=== PATIENT | female | born 1955 ===

== ENCOUNTER 2016-09-12 13:31 | Observation (INO) | payer MEDICARE ==
--- NOTE | 2016-09-12 15:07 | ED PDOC ---
HPI: Abdomen Chief Complaint (Provider): RLQ pain History Per: Patient History/Exam Limitations: no limitations Onset/Duration Of Symptoms: Hrs Outside of [place] travel?: No Current Symptoms Are (Timing): Still Present Pain Scale Rating Of: 10 Location Of Pain/Discomfort: RLQ Quality Of Discomfort: Sharp Associated Symptoms: Chills, Nausea. denies: Fever, Vomiting, Diarrhea Exacerbating Factors: Movement Abnormal Vaginal Bleeding: No Last Menstral Period: >15 yrs ago <Moisés Ashby - Last Filed: 09/12/16 18:20> <Nick Acevedo - Last Filed: 09/12/16 18:52> Time Seen by Provider: 09/12/16 15:05 Chief Complaint (Nursing): Abdominal Pain Additional Complaint(s): 60 yo F w PMHx of HTN, DM2, Nephrolithiasis, and mild intermittent asthma presents to ER w c/o RLQ pain since waking up at 10a this morning. Pain is sharp , 10/10 at worst, radiates around flank and towards lower back. She took one hydrocodone 325mg at noon today, which has helped somewhat while at rest, however her pain still worsens when she extends her leg. She states +chills, + nausea, and +hematuria but denies fevers, vomiting, diaphoresis, diarrhea, constipation, dysuria, vaginal discharge, or other myalgias. PMHx: HTN, DM2, Anxiety, Nephrolithiasis PSHx: Cholecystectomy, Total Hysterectomy, Gynecological tumor removal (June) NKDA (Moisés Ashby) Supervising Attending Note <Moisés Ashby - Last Filed: 09/12/16 18:20> - Supervising Attending Note The Documented history was done by the: Physician Beef Trimmer The documented physical exam was done by the: Physician Beef Trimmer The documented procedures were done by the: Physician Beef Trimmer <Nick Acevedo - Last Filed: 09/12/16 18:52> - Notes: Notes:: RLQ and R flank pain. (Nick Acevedo) Past Medical History Reviewed: Historical Data, Nursing Documentation, Vital Signs - Medical History PMH: Anxiety, Arthritis, Diabetes, Gall Bladder Disease, HTN, Hypercholesterolemia, Kidney Stones Denies: Chronic Kidney Disease - Surgical History Surgical History: Cholecystectomy, Endoscopy - Family History Family History: States: No Known Family Hx <Moisés Ashby T - Last Filed: 09/12/16 18:20> <Nick Acevedo - Last Filed: 09/12/16 18:52> Vital Signs: Last Vital Signs Temp 98.2 F 09/12/16 13:38 Pulse 54 L 09/12/16 13:38 Resp 16 09/12/16 13:38 BP 145/81 09/12/16 13:38 Pulse Ox 100 09/12/16 18:23 - Home Medications Home Medications: Ambulatory Orders Medication Instructions Recorded Alprazolam [Xanax] 0.5 mg PO DAILY PRN 09/12/16 Hydrocodone/Acetaminophen 1 tab PO Q4H PRN 09/12/16 [Hydrocodon-Acetaminophen 5-325] Metoprolol Succinate [Toprol XL] 50 mg PO DAILY 09/12/16 Multivitamin [One-A-Day Essential] 1 tab PO DAILY 09/12/16 traMADol [Ultram] 50 mg PO TID PRN 09/12/16 - Allergies Allergies/Adverse Reactions: Allergies Allergy/AdvReac Type Severity Reaction Status Date / Time No Known Allergies Allergy Verified 06/21/15 01:12 Review of Systems ROS Statement: Except As Marked, All Systems Reviewed And Found Negative (see HPI) <Moisés Ashby T - Last Filed: 09/12/16 18:20> Physical Exam - Reviewed Nursing Documentation Reviewed: Yes Vital Signs Reviewed: Yes - Physical Exam Appears: Positive for: Non-toxic, Uncomfortable Head Exam: Positive for: ATRAUMATIC, NORMOCEPHALIC Skin: Positive for: Normal Color, Warm, Dry. Negative for: Jaundice Eye Exam: Positive for: Normal appearance, EOMI Neck: Positive for: Normal, Painless ROM Cardiovascular/Chest: Positive for: Regular Rate, Rhythm. Negative for: Edema Respiratory: Positive for: Normal Breath Sounds. Negative for: Crackles, Wheezing Gastrointestinal/Abdominal: Positive for: Soft, Tenderness (RLQ). Negative for : Distended Back: Positive for: R CVA Tenderness. Negative for: L CVA Tenderness Extremity: Negative for: Pedal Edema, Calf Tenderness Neurologic/Psych: Positive for: Alert, Oriented <Moisés Ashby - Last Filed: 09/12/16 18:20> - Physical Exam Cardiovascular/Chest: Positive for: Regular Rate, Rhythm Respiratory: Positive for: Normal Breath Sounds Gastrointestinal/Abdominal: Positive for: Tenderness <Nick Acevedo - Last Filed: 09/12/16 18:52> - Laboratory Results Result Diagrams: 09/12/16 15:45 09/12/16 15:45 - ECG O2 Sat by Pulse Oximetry: 100 - Progress Condition: Re-examined, Improved <Moisés Ashby - Last Filed: 09/12/16 18:20> - Laboratory Results Result Diagrams: 09/12/16 15:45 09/12/16 15:45 - CT Scan/US ct Other Rad Studies (CT/US): Read By Radiologist Other Rad Interpretation: urololithiasis <Nick Acevedo - Last Filed: 09/12/16 18:52> - Progress ED Course And Treament: 60 yo F w PMHx of HTN, DM2, Nephrolithiasis, and mild intermittent asthma presents to ER w c/o RLQ pain since waking up at 10a this morning -CBC -CMP -Udip -CT A/P -NS 1L -Toradol 15mg IVP x1 -Zofran 4mg IVP x1 Update 1600: -Nausea resolved -Pain significantly improved Update 1650: -No WBC, LFTs wnl, GFR wnl -Udip: Large blood, -leuk esteraste, -nitrate -Nausea/Pain still controlled Update 1730: -CT A/P w/o contrast: Moderate R obstructive uropathy with moderate hydronephrosis resulting from 4x5mm stone in R distal ureteral proximal to UV junction. Small nonobstructing stones in both kidneys. Mild hepatomegaly and hepatic steatosis. Update 1800: -Spoke w patient's urologist, Dr Salazar. He prefers to be admitted overnight for pain control, placed NPO after midnight, and will be evaluated/treated tomorrow accordingly. -Will be admitted under Dr Meier. -Dr Meier made aware. (Moisés Ashby) 1851: Stable. Will admit to Dr. Meier service. (Nick Acevedo) Disposition - Patient ED Disposition Is Patient to be Admitted: Yes Discussed With : Trevor Meier - Disposition Disposition Time: 18:00 <Moisés Ashby - Last Filed: 09/12/16 18:20> - Pt Status Changed To: Hospital Disposition Of: Observation <Nick Acevedo - Last Filed: 09/12/16 18:52> - Clinical Impression Clinical Impression: Hydronephrosis, right, Urolithiasis - Disposition Condition: FAIR
[2016-09-12] MEDS ORDERED: Sodium Chloride 0.9% 1,000 ML IV SCH (15:30)
[2016-09-12 16:12] LABS: BASO # 0.1 K/uL (0.0-0.2); BASO % 0.5 % (0.0-2.0); EOS # 0.1 K/uL (0.0-0.7); EOS % 0.5 % (0.0-4.0); HEMATOCRIT 39.5 % (34.0-47.0); LYMPH # 1.3 K/uL (1.0-4.3); MEAN CELL VOLUME 88.1 fl (81.0-99.0); MEAN CORPUSCULAR HEMOGLOBIN 29.6 pg (27.0-31.0); MEAN CORPUSCULAR HGB CONC 33.6 g/dL (33.0-37.0); MEAN PLATELET VOLUME 10.2 fl (7.2-11.7); MONO # 0.7 K/uL (0.0-0.8); MONO % 6.6 % (0.0-10.0); NEUT # 8.2 K/uL (1.8-7.0); NEUT % 79.4 % (50.0-75.0); RED CELL DISTRIBUTION WIDTH 13.4 % (11.5-14.5); WHITE BLOOD COUNT 10.3 K/uL (4.8-10.8)
[2016-09-12 16:25] LABS: ALB/GLOB RATIO 1.4 (1.0-2.1); ALKALINE PHOSPHATASE 138 U/L (38-126); ALT/SGPT 38 U/L (9-52); AST/SGOT 25 U/L (14-36); BILIRUBIN,TOTAL 0.5 mg/dl (0.2-1.3); BLOOD UREA NITROGEN 9 mg/dl (7-17); CARBON DIOXIDE 28 mmol/L (22-30); CHLORIDE 103 mmol/L (98-107); GFR AFRICAN-AMERICAN > 60; GLUCOSE,RANDOM 258 mg/dL (65-105); POTASSIUM 3.7 MMOL/L (3.6-5.0); SODIUM 140 mmol/l (132-148); TOTAL PROTEIN 7.6 G/DL (6.3-8.2)
--- NOTE | 2016-09-12 17:04 | CT ---
PROCEDURE: CT Abdomen and Pelvis without intravenous contrast HISTORY: Right lower quadrant pain pain r/o kidney stone COMPARISON: 08/14/2014 TECHNIQUE: CT scan of the abdomen and pelvis was performed without administration of oral or intravenous contrast. Coronal and sagittal reformatted images were obtained. Radiation dose: Total exam DLP = 822.03 mGy-cm. This CT exam was performed using one or more of the following dose reduction techniques: Automated exposure control, adjustment of the mA and/or kV according to patient size, and/or use of iterative reconstruction technique. FINDINGS: LOWER THORAX: The lung bases are clear. LIVER: The liver is enlarged and there is diffuse low-attenuation in the liver. No intrahepatic biliary ductal dilatation. GALLBLADDER AND BILE DUCTS: Surgically absent. PANCREAS: The pancreas is normal in size. No ductal dilatation or calcifications. SPLEEN: The spleen is normal in size. Punctate calcifications are most compatible with old granulomatous disease. ADRENALS: Both adrenal glands are normal in size without discrete nodule. KIDNEYS AND URETERS: There is a 5 x 4 mm obstructing stone in the right distal ureteral proximal to the UV junction with resultant moderate dilatation of the ureteral, moderate hydronephrosis, edema and enlargement of the kidney and perinephric fat stranding. There are 2 small 1-2 mm stones in the upper pole of the right kidney. There are punctate nonobstructing stones in the left kidney. There is no left hydronephrosis or dilatation of the left ureter. VASCULATURE: No aortic aneurysm. BOWEL: The stomach is distended. The small bowel loops are normal in caliber. The colon is unremarkable. APPENDIX: Normal appendix. PERITONEUM: No free fluid. No free air. LYMPH NODES: No enlarged lymph nodes. BLADDER: Well distended and normal in appearance. REPRODUCTIVE: The uterus is surgically absent. BONES: No acute fracture. Degenerative disc disease at L4-5. OTHER FINDINGS: None. IMPRESSION: 1. Moderate right obstructive uropathy resulting from a 4 x 5 mm stone in the right distal ureteral proximal to the UV junction. 2. Small nonobstructing stones in both kidneys. 3. Mild hepatomegaly and hepatic steatosis.
[2016-09-12] MEDS: Potassium Chl 20 mEq in NS 1,000 ML IV SCH (19:56)
[2016-09-12] MEDS: Insulin Lispro (humaLOG) 100 Units/ml Inj SC SCH (22:09)
--- NOTE | 2016-09-12 22:41 | CP.PCM.CON ---
History of Present Illness - History of Present Illness History of Present Illness: UROLOGY Called to see this 60 yr female with acute right renal colic. while in er [place] CT done shows a right lower ureteral calc about 5mm size with right hydronephrosis. Will hydrate tonight but if stone does not pass will plan stone manipulation for tomorrow. Past Patient History - Past Medical History & Family History Past Medical History?: Yes - Past Social History Smoking Status: Never Smoked - CARDIAC Hx Hypercholesterolemia: Yes Hx Hypertension: Yes - PULMONARY Hx Respiratory Disorders: No - NEUROLOGICAL Hx Neurological Disorder: No - HEENT Hx HEENT Problems: No - RENAL Hx Chronic Kidney Disease: No Hx Kidney Stones: Yes - ENDOCRINE/METABOLIC Hx Endocrine Disorders: Yes Hx Diabetes Mellitus Type 2: Yes - HEMATOLOGICAL/ONCOLOGICAL Hx Blood Disorders: No - INTEGUMENTARY Hx Dermatological Problems: No - MUSCULOSKELETAL/RHEUMATOLOGICAL Hx Arthritis: Yes - GASTROINTESTINAL Hx Gall Bladder Disease: Yes - GENITOURINARY/GYNECOLOGICAL Hx Genitourinary Disorders: No - PSYCHIATRIC Hx Anxiety: Yes - SURGICAL HISTORY Hx Cholecystectomy: Yes - ANESTHESIA Hx Anesthesia: Yes Hx Anesthesia Reactions: Yes (vomiting) Hx Malignant Hyperthermia: No Meds Allergies/Adverse Reactions: Allergies Allergy/AdvReac Type Severity Reaction Status Date / Time No Known Allergies Allergy Verified 06/21/15 01:12 - Medications Medications: Current Medications Potassium Chloride/Sodium Chloride (Potassium Chl 20 Meq In Ns) 1,000 mls @ 126 mls/hr IV .Q7H57M [facility] Stop: 09/13/16 10:07 Last Admin: 09/12/16 19:56 Dose: 126 mls/hr Insulin Human Lispro (Humalog) 0 units SC ACHS [facility] PRN Reason: Protocol Last Admin: 09/12/16 22:09 Dose: Not Given Ketorolac Tromethamine (Toradol) 15 mg IVP Q6 PRN PRN Reason: Pain, Mild (1-3) Tamsulosin HCl (Flomax) 0.4 mg PO DAILY [facility] Last Admin: 09/12/16 19:56 Dose: 0.4 mg Results - Vital Signs Recent Vital Signs: Last Vital Signs Temp 98.2 F 09/12/16 13:38 Pulse 54 L 09/12/16 13:38 Resp 16 09/12/16 13:38 BP 145/81 09/12/16 13:38 Pulse Ox 100 09/12/16 18:23 - Labs Result Diagrams: 09/12/16 15:45 09/12/16 15:45
[2016-09-13] MEDS: Potassium Chl 20 mEq in NS 1,000 ML IV SCH (03:00)
[2016-09-13 06:52] LABS: PARTIAL THROMBOPLASTIN TIME 29.5 Seconds (25.6-37.1)
[2016-09-13] MEDS: Insulin Lispro (humaLOG) 100 Units/ml Inj SC SCH ×3 (07:04→17:54)
[2016-09-13] MEDS ORDERED: Pantoprazole 40 mg EC Tab PO SCH (09:00)
[2016-09-13] MEDS ORDERED: Metoprolol Succinate 25 mg XL Tab PO SCH (09:00)
[2016-09-13] MEDS ORDERED: Enoxaparin 30 mg Syringe SC SCH (09:00)
[2016-09-13] MEDS ORDERED: Enoxaparin 40 mg Syringe SC SCH (09:00)
--- NOTE | 2016-09-13 10:43 | CP.PCM.HP ---
History of Present Illness - History of Present Illness History of Present Illness: This is a 60 y/o female with hx of HTN asthma DM2 and nephrolithiasis admitted through the Er for acute renal colic. Woke up with Right flank pain. there was no fever or vomiting.CT scan showed 5 mm right lower ureteral calculus. Present on Admission - Present on Admission Any Indicators Present on Admission: No History of DVT/PE: No History of Uncontrolled Diabetes: Yes Urinary Catheter: No Decubitus Ulcer Present: No Review of Systems - Gastrointestinal Gastrointestinal: Abdominal Pain Additional comments: flank pain on an d off Past Patient History - Past Medical History & Family History Past Medical History?: Yes - Past Social History Smoking Status: Never Smoked - CARDIAC Hx Cardiac Disorders: Yes - PULMONARY Hx Respiratory Disorders: Yes - NEUROLOGICAL Hx Neurological Disorder: No - HEENT Hx HEENT Problems: No - RENAL Hx Chronic Kidney Disease: Yes - ENDOCRINE/METABOLIC Hx Endocrine Disorders: Yes - HEMATOLOGICAL/ONCOLOGICAL Hx Blood Disorders: No - INTEGUMENTARY Hx Dermatological Problems: No - MUSCULOSKELETAL/RHEUMATOLOGICAL Hx Musculoskeletal Disorders: Yes - GASTROINTESTINAL Hx Gastrointestinal Disorders: Yes Hx Gall Bladder Disease: Yes - GENITOURINARY/GYNECOLOGICAL Hx Genitourinary Disorders: Yes - PSYCHIATRIC Hx Psychophysiologic Disorder: Yes - SURGICAL HISTORY Hx Surgeries: Yes Hx Cholecystectomy: Yes Hx Hysterectomy: Yes Other/Comment: Rempval of ureteral mass June 2016 - ANESTHESIA Hx Anesthesia: Yes Hx Anesthesia Reactions: Yes (vomiting) Hx Malignant Hyperthermia: No Has any member of the family had a problem w/ anesthesia?: No Meds Allergies/Adverse Reactions: Allergies Allergy/AdvReac Type Severity Reaction Status Date / Time No Known Allergies Allergy Verified 06/21/15 01:12 Physical Exam - Head Exam Head Exam: NORMAL INSPECTION - Eye Exam Eye Exam: Normal appearance - Respiratory Exam Respiratory Exam: Clear to Auscultation Bilateral - Cardiovascular Exam Cardiovascular Exam: REGULAR RHYTHM - GI/Abdominal Exam GI & Abdominal Exam: Normal Bowel Sounds - Neurological Exam Neurological exam: CN II-XII Intact, Reflexes Normal - Skin Skin Exam: Normal Color Results - Vital Signs Recent Vital Signs: Last Vital Signs Temp 98.4 F 09/13/16 09:00 Pulse 71 09/13/16 10:18 Resp 18 09/13/16 07:21 BP 119/59 L 09/13/16 10:18 Pulse Ox 98 09/13/16 07:21 - Labs Result Diagrams: 09/12/16 15:45 09/12/16 15:45 Labs: Laboratory Results - last 24 hr 09/12/16 09/13/16 09/13/16 22:07 05:20 05:48 PT 12.1 INR 1.1 APTT 29.5 POC Glucose (mg/dL) 166 H 101 Assessment & Plan (1) Urolithiasis Status: Acute (2) Renal colic on right side Status: Acute (3) Diabetes mellitus type 2 in obese Status: Acute (4) Ureterolithiasis Status: Acute (5) Hypertension Status: Acute - Assessment and Plan (Free Text) Plan: hydration pain meds urology eval medically stable for uro procedure pain meds Dc after seen by Dr Mcknight.
[2016-09-13] MEDS ORDERED: Propofol 10 mg/ml Inj (20 ML) ONE (12:12)
[2016-09-13] MEDS ORDERED: cefTRIAXone (Rocephin) 1 gm Inj ONE (12:22)
[2016-09-13 12:34] VITALS: BMI 31.6
[2016-09-13] MEDS ORDERED: Lactated Ringer's 1,000 ML IV ONE ×2 (12:45→14:38)
[2016-09-13] MEDS ORDERED: cefTRIAXone (Rocephin) 1 gm Inj IM ONE (12:55)
[2016-09-13] MEDS ORDERED: Lactated Ringer's 1,000 ML IV SCH (13:39)
[2016-09-13] MEDS: HYDROmorphone 0.5 mg/0.5 ml ISec IVP PRN ×2 (14:32→15:00)
[2016-09-13 16:22] VITALS: BP 119/60; PULSE 54; RESP 20; TEMP 97.8; O2SAT 93
--- NOTE | 2016-11-25 09:04 | OP ---
DOS: 09/13/16 PREOPERATIVE DIAGNOSIS: Right renal colic secondary to right ureteral calculus. POSTOPERATIVE DIAGNOSIS: Right renal colic secondary to right ureteral calculus. PROCEDURE PERFORMED: Cystoscopy, right ureteroscopy, stone basketing, and J-stent placement. DESCRIPTION OF PROCEDURE: Under general anesthesia, the patient was placed on the operating table in the dorsal lithotomy position. The area of the groin was draped and prepped in a sterile manner. Using a short ureteroscope, I entered into the bladder atraumatically, identified the right ureter and over a sensor wire, I advanced the ureteroscope to the level of the obstructing stone. I bypassed the stone. I used the double-helical basket. I engaged the stone and removed it completely. The stone was sent for specimen analysis. I did second look ureteroscopy to make sure that there was no other residual stones. Once this was noted to be clear, then the patient was taken from the operating room in good condition. Linette Salazar MD
== END 2016-09-13 18:39 | disposition home or self-care (01) ==
LOC: H.ER 13:31 → H.ERHOLD 18:35 → H.MEDSURG1 22:22
PROVIDERS: ADMIT Family Medicine; ATTEND Family Medicine
DX: N13.2 Hydronephrosis with renal and ureteral calculous obstruction (principal); E11.9 Type 2 diabetes mellitus without complications; E66.9 Obesity, unspecified; Z68.31 Body mass index [BMI] 31.0-31.9, adult; E78.00 Pure hypercholesterolemia, unspecified; I10 Essential (primary) hypertension; J45.20 Mild intermittent asthma, uncomplicated; Z87.442 Personal history of urinary calculi; F41.9 Anxiety disorder, unspecified
CPT/HCPCS: 36415; 52332; 52352; 74176; 80053; 82355; 82948; 85025; 85610; 85730; 88300; 96361; 96374; 96375; 99282; C1769; C2617; G0378; J0696; J1170; J1885; J2001; J2405; J2704; J3010; J7040; J7120